=== PATIENT | male | born 1985 | race Caucasian/White ===

== ENCOUNTER 2024-07-18 20:50 | Emergency (ER) | payer OTHER ==
[~2024-07-18] VITALS: Ht 175.3 cm; Wt 97.4 kg
[~2024-07-18 20:50] MED LIST: ANECREAM5 GM TOP; BACTRIM DS TAB1 EACH PO; CLEOCIN HCL300 MG PO; COZAAR50 MG PO; ESCITALOPRAM OX10 MG PO; ETODOLAC300 MG PO; HYDROCODON-ACE1 EA10 PO; HYDROXYZINE HCL50 MG PO; MELATONIN5 M5 PO; METOPROLOL SUCC50 MG PO; SINGULAIR10 MG PO; ZYRTEC10 MG PO
[2024-07-18] MEDS ORDERED: CELEBREX50 MG PO (21:13)
[2024-07-18] MEDS ORDERED: DAPTOmycin 500 MG/10 ML VIAL IV ONE (22:00)
[2024-07-18] MEDS ORDERED: KETOROLAC TROMETHAMINE 30 MG/ML VIAL IV ONE (22:15)
[2024-07-18 22:38] LABS: HEMOGLOBIN 14.5 g/dL (12.0-18.0)
[2024-07-18 22:44] LABS: BASOPHILS 0.7 % (0-2); HEMATOCRIT 42.3 % (35.0-50.0); LYMPHOCYTES 19.3 % (24-44); MCH 29.8 (27-36); MCHC 34.3 g/dl (30-36); MONOCYTES 14.5 % (0-12); NEUTROPHILS 63.5 % (39-80); PLATELET COUNT 227 K/uL (140-440); RBC 4.87 M/ul (4.3-5.7); RDW 13.4 (10.5-15.0)
[2024-07-18 22:54] LABS: ALBUMIN 3.8 g/dL (3.4-5.0); ALBUMIN/GLOBULIN RATIO 1.19 (1.1-2.4); ANION GAP 14.4 (7-21); BILIRUBIN, TOTAL 0.5 ng/dL (0.2-1.0); BUN/CREATININE RATIO 8.92 (6.0-28.6); CALCIUM 8.6 mg/dL (8.5-10.1); CREATININE, SERUM 1.12 mg/dL (0.70-1.30); POTASSIUM 4.4 mmol/L (3.5-5.1)
[2024-07-18] MEDS ORDERED: DOXYCYCLINE HY100 M3 PO (23:32)
[2024-07-18 23:43] VITALS: BP 145/85
[2024-07-18] MEDS ORDERED: HYDROCODONE/ACETA 5/325 TAB PO ONE (23:45)
== END 2024-07-18 23:43 | disposition other institution, planned readmission (95) ==
LOC: ED 20:50
PROVIDERS: Internal Medicine
DX: J34.0 Abscess, furuncle and carbuncle of nose (principal); I10 Essential (primary) hypertension; Z79.899 Other long term (current) drug therapy
CPT/HCPCS: 36415; 80053; 84550; 85025; 96374; 96375; 99283-25; J0878; J1885